=== PATIENT | male | born 1975 | race Caucasian/White ===

== ENCOUNTER 2023-11-13 13:36 | Emergency (ER) | payer OTHER, SELFPAY ==
--- NOTE | 2023-11-13 13:39 | ED.GENADULT ---
HPI - General Adult General Chief complaint: Wound/Laceration Stated complaint: Arm lac @ work Time Seen by Provider: 11/13/23 14:08 Source: patient Mode of arrival: ambulatory Limitations: no limitations History of Present Illness ED Provider: Trinidad Tarango PA-C HPI narrative: Nahid is a 48 year old male who presented today for a laceration on his right forearm. He notes that he was using a stone edge grinder machine at work when it kicked back and cut his right arm. He notes that he held pressure and presented to the ED here, where bleeding was controlled further with pressure. Of note, he does not recall the last time he has had a tetanus booster. He denies any numbness or tingling of the right upper extremity or any associated motor weakness. He does not have any further complaints at this time. complaint: lac to right wrist Onset (ago): minute(s) (15) Location: upper extremity (right forearm) Radiation: non-radiation Associated symptoms: denies other symptoms Related Data Previous Rx's ?Medication ?Instructions ?Recorded amoxicillin 875 mg-potassium 1 tab PO BID #6 tabs 11/13/23 clavulanate 125 mg tablet Allergies Allergy/AdvReac Type Severity Reaction Status Date / Time No Known Allergies Allergy Verified 11/13/23 13:41 Review of Systems Review of Systems: Yes all other systems are reviewed and are negative Constitutional: Constitutional: Reports as per HPI Cardiovascular: Cardiovascular: Reports as per HPI Respiratory: Respiratory: Reports as per HPI Musculoskeletal: Musculoskeletal: Reports as per HPI Comments: laceration to the right forearm Neurologic: Reports system reviewed and no additional complaints, except as documented Psychiatric: Psychiatric: Reports no additional psychiatric complaints Hematologic/Lymphatic: Hematologic/Lymphatic: Reports no additional hematologic/lymphatic complaints Allergic/Immunologic: Allergic/Immunologic: Reports no additional allergic/immunologic complaints [facility] Social History Social History Advance Directives: No Do you have a plan to hurt others: No Plan Physical Exam ED Vital Signs: Vital Signs - 24 hr 11/13/23 13:40 11/13/23 14:27 11/13/23 14:51 Temperature 98.5 F 98.2 F Pulse Rate 113 H 84 Respiratory Rate 18 16 Blood Pressure 159/121 H 141/88 H 141/88 H Pulse Oximetry 96 98 Oxygen Delivery Method Room Air Room Air BMI result Body Mass Index 32.5 Appearance: Alert. Oriented X3. No acute distress. Head: normocephalic, atraumatic. Eyes: Pupils equal, EOMI CVS: Normal heart rate and rhythm. Pulses normal. Respiratory: No respiratory distress, normal work of breathing without accessory muscle use. Skin: Laceration on the medial aspect of the distal third of the right forearm, approximately 4cm long x 1cm wide, with well controlled bleeding and black flecks which are likely secondary to cauterized tissue from the mechanism of injury, skin otherwise warm and dry, with normal color. Normal skin turgor. Extremities: No lower extremity edema. No joint swelling. Neuro/psych: Oriented X 3. No motor deficit. No sensory deficit. Normal speech and cognition. Motor and sensory function were intact upon re-examination after laceration was sutured. Course Course Course Narrative: This is an RME done by [facility] Gleason: Additional HPI, ROS, PE not included below will be deferred to primary provider. 48 year old male presenting with laceration to right forearm that just occurred a few moments ago while working. Pt held pressure to site while a coworker drove him, laceration has since stopped bleeding. Plan- teatnus Appearance: Alert.? Oriented X3.? No acute cardiopulmonary distress distress.? Head: Normocephalic, atraumatic, no step-offs or deformities Neck: Normal inspection.? Neck supple.? CVS: Pulses normal.? Respiratory: No respiratory distress.? Abdomen: Soft and nontender.? Skin: ? Normal skin color. Extremities: 5/5 strength to bilateral upper and lower extremities; + 2 inch laceration to right volar aspect of forearm Neuro: Oriented X 3.? No motor deficit.? No sensory deficit. Medications Administered Discontinued Medications Generic Name Dose Route Start Last Admin Trade Name Freq PRN Reason Stop Dose Admin Diphtheria/Tetanus/Acell Pertussis 0.5 ml 11/13/23 13:41 11/13/23 14:23 Diphth,Pertus(Acell),Tet Adult 0.5 Ml Syringe IM 11/13/23 13:42 0.5 ml .ONCE ONE Administration Lidocaine HCl 20 ml 11/13/23 13:41 11/13/23 13:50 Lidocaine Hcl 1 % 20 Ml Vial SUBCUT 11/13/23 13:42 20 ml ONCE ONE Administration Procedures Laceration Laceration 1: Site: upper extremity Side (If applicable): right Size (cm): 4 Description: linear Depth: simple, single layer Local Anesthetic: lidocaine 1% and with epi Amount of anesthesia used (mL): 4 Pre-repair: wound explored, irrigated extensively and deep structures intact Skin layer closed with: nylon Size (cm): 4-0 Number of sutures: 6 Technique: simple, interrupted Medical Decision Making Medical Decision Making MDM Narrative: Nahid is a 48 year old male who presented today for a laceration on his right forearm. He notes that he was using a stone edge grinder machine at work when it kicked back and cut his right arm. He notes that he held pressure and presented to the ED here, where bleeding was controlled further with pressure. Of note, he does not recall the last time he has had a tetanus booster. He denies any numbness or tingling of the right upper extremity or any associated motor weakness. He does not have any further complaints at this time. The laceration site was first numbed using a local anesthetic comprised of lidocaine and epinephrine. Using sterile technique, the laceration was then sterilized with betadine and draped appropriately. Laceration was closed using seven, 4-0 Nylon sutures, where the wound edges were approximated appropriately. The patient was noted to tolerate this procedure well. Bleeding had been managed upon initial evaluation of patient and no significant bleeding was noted throughout the process of suturing the wound closed, making an ongoing arterial/venous bleed less clinically suspicious. Low clinical suspicion for tendon or ligament rupture as patient's motor function was checked before and after the wound was closed and was noted to be grossly intact. Nerve injury also less clinically suspicious as the patient did not have any numbness or tingling after the laceration was sustained or after being sutured closed. Low clinical suspicion for any anna involvement, as the wound did not delve deep enough to involve bone. Patient is stable for discharge home. Counseled on wound care. Will give a few days of antibiotics for infection prophylaxis. Stable for discharge. Differential Diagnosis Differential Diagnoses: The differential diagnosis associated with the presentation includes Superficial laceration, deep laceration w/ or w/o anna involvement, nerve injury, ligament/tendon injury Tests considered The following testing was considered but not selected: Considered x-ray however low clinical suspicion for open fracture Prescription Management I considered prescription management with: Pain Medication and Antibiotic Critical Care Time Critical Care Time Critical Care Time: No Discharge Plan Discharge Clinical Impression: Laceration Patient Disposition: Home, Self-Care Instructions: Laceration (DC) Additional Instructions: 7 sutures were used to close your wound today You will need your stitches out in 7-10 days. See you doctor for this or come back to the ER and we will remove them. Do not get wet for 24 hours, after that you can briefly wash with soap and water then pat dry. Keep wound clean and covered. Do not submerge in water, no swimming. If you develop signs of infection including increased pain, swelling, redness or drainage of pus come back to the ER for further evaluation. Prescriptions: New amoxicillin-pot clavulanate 875-125 mg tablet 1 tab PO BID Qty: 6 0RF Interventions: ED Discharge Assessment Last Done: 11/13/23 14:51 Discharge Date/Time: 11/13/23 14:51 Print Language: Upper Sorbian
[2023-11-13 13:40] VITALS: BP 159/121; PULSE 113; RESP 18; TEMP 36.9; O2SAT 96; BMI 32.5
[2023-11-13] MEDS: Lidocaine HCl 1 % 20 ML VIAL SUBCUT (13:50)
--- NOTE | 2023-11-13 14:21 | ED.WOUNDLAC ---
HPI - Wound/Laceration General Chief Complaint: Wound/Laceration Stated Complaint: Arm lac @ work Time Seen by Provider: 11/13/23 14:08 History of Present Illness HPI narrative: Navid Related Data Allergies Allergy/AdvReac Type Severity Reaction Status Date / Time No Known Allergies Allergy Verified 11/13/23 13:41 PMFSH Social History Social History Do you have a plan to hurt others: No Plan Physical Exam Vital Signs: Vital Signs: Last Vital Signs Temp 98.5 F 11/13/23 13:40 Pulse 113 H 11/13/23 13:40 Resp 18 11/13/23 13:40 BP 159/121 H 11/13/23 13:40 Pulse Ox 96 11/13/23 13:40 O2 Del Method Room Air 11/13/23 13:40 BMI result Body Mass Index 32.5 Medications Administered Discontinued Medications Generic Name Dose Route Start Last Admin Trade Name Freq PRN Reason Stop Dose Admin Lidocaine HCl 20 ml 11/13/23 13:41 11/13/23 13:50 Lidocaine Hcl 1 % 20 Ml Vial SUBCUT 11/13/23 13:42 20 ml ONCE ONE Administration
[2023-11-13] MEDS: Diphth,Pertus(ACell),Tet Adult 0.5 ML SYRINGE IM (14:23)
[2023-11-13 14:27] VITALS: BP 141/88
[2023-11-13 14:51] VITALS: BP 141/88; PULSE 84; RESP 16; TEMP 36.8; O2SAT 98
== END 2023-11-13 14:51 | disposition home or self-care (01) ==
PROVIDERS: Emergency Provider Emergency Medicine Emergency Medical Services
DX: S51.811A Laceration without foreign body of right forearm, initial encounter (principal); W31.89XA Contact with other specified machinery, initial encounter; Y93.89 Activity, other specified; Y92.89 Other specified places as the place of occurrence of the external cause; Y99.0 Civilian activity done for income or pay; Z23 Encounter for immunization
CPT/HCPCS: 12002; 90471; 90715; 99283; 99284